=== PATIENT | female | born 1970 | race Caucasian/White ===

== ENCOUNTER 2024-01-28 03:52 | Inpatient (IN) | payer MEDICAID ==
[~2024-01-28] VITALS: Ht 162.6 cm; Wt 57.7 kg
[2024-01-28 04:14] LABS: BILIRUBIN,URINE NEGATIVE (Neg); CLARITY,URINE CLEAR (Clear); COLOR,URINE YELLOW (Yellow); GLUCOSE, URINE NEGATIVE (Neg); KETONES,URINE NEGATIVE (Neg); LEUKOCYTE ESTERASE ,URINE NEGATIVE (Neg); NITRITES, URINE NEGATIVE (Neg); OCCULT BLOOD,URINE NEGATIVE (Neg); PH,URINE 6.5 (4.8-8.0); PROTEIN,URINE NEGATIVE (Neg); URINE HCG NEGATIVE (NEG); UROBILINOGEN,URINE 0.2 E.U/dL (0.2-1.0)
[2024-01-28 04:16] LABS: UA COLLECTION TYPE CLN CATCH MIDSTREAM
[2024-01-28] MEDS: ondansetron/PF 4mg/2ml inj IV ONE ×2 (04:39→04:46)
[2024-01-28] MEDS: normal saline 1000ml 1,000 ML IV ONE (04:39)
[2024-01-28] MEDS: proCHLORperazine 10 MG/2 ml inj IV ONE (04:46)
[2024-01-28 04:54] LABS: BASOPHILS # (AUTO) 0.1 X10'3 (0-0.2); BASOPHILS % (AUTO) 0.5 % (0-1); EOSINOPHILS # (AUTO) 0.1 X10'3 (0-0.9); EOSINOPHILS % (AUTO) 0.6 % (0-6); HEMATOCRIT 38.1 % (35.0-45.0); HEMOGLOBIN 12.3 g/dl (12.0-16.0); LYMPHOCYTES # (AUTO) 0.8 X10'3 (1.1-4.8); LYMPHOCYTES % (AUTO) 7.3 % (21-51); MEAN CORPUSCULAR HEMOGLOBIN 27.2 PG (27.0-31.0); MEAN CORPUSCULAR HGB CONC 32.3 g/dL (33.0-36.5); MEAN CORPUSCULAR VOLUME 84.3 FL (78-98); MEAN PLATELET VOLUME 8.2 FL (7.4-10.4); MONOCYTES # (AUTO) 0.5 X10'3 (0-0.9); MONOCYTES % (AUTO) 4.1 % (2-12); NEUTROPHILS # (AUTO) 9.7 X10'3 (1.8-7.7); NEUTROPHILS % (AUTO) 87.5 % (42-75); PLATELET COUNT 341 X10'3 (140-440); RED BLOOD COUNT 4.52 X10'6 (4.20-5.60)
[2024-01-28 05:10] LABS: ALANINE AMINOTRANSFERASE 57 U/L (12-78); ALBUMIN 3.6 G/DL (3.4-5.0); ALBUMIN/GLOBULIN RATIO 1.3 (1.1-1.5); ALKALINE PHOSPHATASE 32 IU/L (46-116); ANION GAP 8 (8-16); ASPARTATE AMINO TRANSFERASE 42 U/L (10-37); BILIRUBIN,TOTAL 0.2 MG/DL (0.1-1.0); BLOOD UREA NITROGEN 23 MG/DL (7-18); BUN/CREATININE RATIO 37.7 (10.0-20.0); CHLORIDE 107 MMOL/L (99-107); CREATININE 0.61 MG/DL (0.40-0.90); GLUCOSE 121 MG/DL (70-104); POTASSIUM 3.4 MMOL/L (3.5-5.1); SODIUM 141 MMOL/L (135-145); TOTAL CARBON DIOXIDE 25.8 MMOL/L (24-32); TOTAL PROTEIN 6.4 G/DL (6.4-8.2); eCRCL 94 ML/MIN; eGFR > 90 ML/MIN
[2024-01-28 05:12] LABS: LIPASE 295 U/L (16-77)
[2024-01-28] MEDS ORDERED: magnesium sulf-water 2g/50mL 50 ML IV PRN (06:00)
[2024-01-28] MEDS ORDERED: acetaminophen 325mg tablet PO PRN (06:00)
[2024-01-28] MEDS ORDERED: magnesium hydroxide 30ml (MOM) UD suspension PO PRN (06:00)
[2024-01-28] MEDS ORDERED: mag hydrox/Alum hydrox/simeth 30ml oral suspension PO PRN (06:00)
[2024-01-28] MEDS ORDERED: magnesium sulf-water 4G/100mL 100 ML IV PRN (06:00)
[2024-01-28] MEDS ORDERED: magnesium Cl slow-release 64mg tablet PO PRN (06:00)
[2024-01-28] MEDS ORDERED: potassium Cl 20 mEq SR tablet PO PRN ×2 (06:00)
[2024-01-28] MEDS: normal saline 1000ml 1,000 ML IV SCH (07:28)
[2024-01-28] MEDS: ringers solution, lacted 1,000 ML IV ONE (07:28)
[2024-01-28] MEDS: K and/or MAG REPLACEMENT MC SCH (08:00)
[2024-01-28] MEDS: docusate sod 100mg capsule PO SCH (08:00)
[2024-01-28 08:05] VITALS: BP 115/70; PULSE 72; RESP 14; TEMP 97.9; O2SAT 99
[2024-01-28 08:45] LABS: C-REACTIVE PROTEIN < 0.05 MG/DL (0.0-0.5)
[2024-01-28] MEDS: heparin, porcine 5000 units/ml vial SQ SCH (09:13)
[2024-01-28] MEDS ORDERED: GABA600T13 PO (12:24)
[2024-01-28] MEDS ORDERED: LANS15CA18 PO (12:24)
[2024-01-28] MEDS ORDERED: ZOLP10TA (12:24)
[2024-01-28] MEDS ORDERED: ALPR-624 PO (12:24)
[2024-01-28] MEDS ORDERED: BACL10TA2 PO (12:24)
[2024-01-28] MEDS ORDERED: BUSP30TA3 (12:24)
[2024-01-28] MEDS ORDERED: LEVO50TA8 PO (12:24)
[2024-01-28] MEDS ORDERED: FAMO20TA8 PO (12:31)
[2024-01-28] MEDS ORDERED: PROP10TA10 PO (12:36)
[2024-01-28] MEDS ORDERED: PALI3TAB PO (13:35)
[2024-01-28] MEDS: pantoprazole 40 MG vial IV STA (13:51)
[2024-01-28] MEDS: potassium Cl 40MEQ/1/2NS 520ml 520 ML IV PRN (13:53)
[2024-01-28] MEDS ORDERED: DULO60CA65 PO (14:02)
[2024-01-28] MEDS ORDERED: SUCR1TAB (14:02)
[2024-01-28 16:04] VITALS: RESP 16
[2024-01-28 20:00] VITALS: BP 114/69; PULSE 71; RESP 14; TEMP 98; O2SAT 100
[2024-01-28] MEDS: morphine 2 MG/ML inj. syringe IV PRN (20:58)
[2024-01-29] MEDS: ondansetron/PF 4mg/2ml inj IV PRN (01:20)
[2024-01-29 06:00] VITALS: BP 97/64; PULSE 69; RESP 16; TEMP 97.5; O2SAT 100
[2024-01-29 06:08] LABS: BASOPHILS # (AUTO) 0.1 X10'3 (0-0.2); BASOPHILS % (AUTO) 1.5 % (0-1); EOSINOPHILS # (AUTO) 0.1 X10'3 (0-0.9); EOSINOPHILS % (AUTO) 1.7 % (0-6); HEMOGLOBIN 10.7 g/dl (12.0-16.0); LYMPHOCYTES # (AUTO) 1.5 X10'3 (1.1-4.8); LYMPHOCYTES % (AUTO) 27.6 % (21-51); MEAN CORPUSCULAR HEMOGLOBIN 27.7 PG (27.0-31.0); MEAN CORPUSCULAR HGB CONC 32.4 g/dL (33.0-36.5); MEAN CORPUSCULAR VOLUME 85.7 FL (78-98); MEAN PLATELET VOLUME 8.1 FL (7.4-10.4); MONOCYTES # (AUTO) 0.5 X10'3 (0-0.9); MONOCYTES % (AUTO) 10.1 % (2-12); NEUTROPHILS # (AUTO) 3.1 X10'3 (1.8-7.7); NEUTROPHILS % (AUTO) 59.1 % (42-75); PLATELET COUNT 283 X10'3 (140-440); RED BLOOD COUNT 3.85 X10'6 (4.20-5.60); RED CELL DISTRIBUTION WIDTH 13.7 % (11.5-14.5); WHITE BLOOD COUNT 5.3 X10'3 (4.5-11.0)
[2024-01-29 06:19] LABS: ALANINE AMINOTRANSFERASE 43 U/L (12-78); ALBUMIN 2.8 G/DL (3.4-5.0); ALBUMIN/GLOBULIN RATIO 1.2 (1.1-1.5); ALKALINE PHOSPHATASE 25 IU/L (46-116); ANION GAP 4 (8-16); ASPARTATE AMINO TRANSFERASE 25 U/L (10-37); BILIRUBIN,TOTAL 0.3 MG/DL (0.1-1.0); BLOOD UREA NITROGEN 10 MG/DL (7-18); BUN/CREATININE RATIO 18.9 (10.0-20.0); CALCIUM 8.1 MG/DL (8.5-10.1); CHLORIDE 110 MMOL/L (99-107); CHOL/HDL RATIO 2.6 (0.00-4.99); CHOLESTEROL 173 MG/DL (0-200); CREATININE 0.53 MG/DL (0.40-0.90); GLUCOSE 97 MG/DL (70-104); HDL CHOLESTEROL 66 MG/DL (35-60); LDL CHOLESTEROL 84 MG/DL (50-100); MAGNESIUM 1.8 MG/DL (1.5-2.4); POTASSIUM 3.8 MMOL/L (3.5-5.1); SODIUM 141 MMOL/L (135-145); TOTAL CARBON DIOXIDE 27.1 MMOL/L (24-32); TOTAL PROTEIN 5.1 G/DL (6.4-8.2); TRIGLYCERIDES 110 MG/DL (20-135); eCRCL 108 ML/MIN; eGFR > 90 ML/MIN
[2024-01-29 06:31] LABS: C-REACTIVE PROTEIN < 0.05 MG/DL (0.0-0.5)
[2024-01-29] MEDS: levoTHYROXINE 25mcg tablet PO SCH (06:58)
[2024-01-29] MEDS: famotidine 20mg tablet PO SCH (07:07)
[2024-01-29] MEDS: ALPRAZolam 0.5mg tablet PO SCH (07:07)
[2024-01-29] MEDS: duloxetine 30mg CAPSULE.DR PO SCH (07:08)
[2024-01-29] MEDS: baclofen 10mg tablet PO PRN (07:08)
[2024-01-29] MEDS: propranolol 10mg tablet PO SCH (07:09)
[2024-01-29] MEDS: gabapentin 300mg capsule PO SCH (07:09)
[2024-01-29] MEDS: pantoprazole 40 MG vial IV SCH (07:10)
[2024-01-29] MEDS: metoclopramide 5 mg/ml inj IV PRN (07:14)
[2024-01-29 08:00] VITALS: RESP 16; O2SAT 100
[2024-01-29] MEDS ORDERED: pantoprazole 40 MG vial IV SCH (08:00)
[2024-01-29] MEDS: metroNIDAZOLE-Flagyl 500mg/NS 100 ML IV SCH (09:22)
[2024-01-29 10:00] VITALS: BP 96/51; PULSE 66; RESP 16; TEMP 98.5; O2SAT 97
[2024-01-29] MEDS: CefTRIAXone 2gm/D5W 50ml BAG 50 ML IV SCH (10:15)
[2024-01-29] MEDS: paliperidone 1.5mg ER tablet PO SCH (10:15)
[2024-01-29 18:00] VITALS: BP 103/61; PULSE 60; RESP 16; TEMP 97.7; O2SAT 94
[2024-01-29 20:00] VITALS: RESP 16; O2SAT 94
[2024-01-29] MEDS: acetaminophen 325mg tablet PO PRN (20:26)
[2024-01-29 22:00] VITALS: BP 100/64; PULSE 80; RESP 16; TEMP 97.9; O2SAT 95
[2024-01-30 06:00] VITALS: BP 102/58; PULSE 70; RESP 16; TEMP 97.8; O2SAT 97
[2024-01-30 06:52] LABS: BASOPHILS % (AUTO) 1.1 % (0-1); EOSINOPHILS # (AUTO) 0.1 X10'3 (0-0.9); EOSINOPHILS % (AUTO) 2.1 % (0-6); HEMATOCRIT 30.2 % (35.0-45.0); HEMOGLOBIN 9.6 g/dl (12.0-16.0); LYMPHOCYTES % (AUTO) 24.8 % (21-51); MEAN CORPUSCULAR HEMOGLOBIN 27.5 PG (27.0-31.0); MEAN CORPUSCULAR HGB CONC 31.9 g/dL (33.0-36.5); MEAN CORPUSCULAR VOLUME 86.2 FL (78-98); MEAN PLATELET VOLUME 7.9 FL (7.4-10.4); MONOCYTES # (AUTO) 0.5 X10'3 (0-0.9); MONOCYTES % (AUTO) 11.3 % (2-12); NEUTROPHILS # (AUTO) 2.5 X10'3 (1.8-7.7); NEUTROPHILS % (AUTO) 60.7 % (42-75); PLATELET COUNT 248 X10'3 (140-440); RED BLOOD COUNT 3.51 X10'6 (4.20-5.60); WHITE BLOOD COUNT 4.1 X10'3 (4.5-11.0)
[2024-01-30 07:07] LABS: ALANINE AMINOTRANSFERASE 43 U/L (12-78); ALBUMIN 2.5 G/DL (3.4-5.0); ALBUMIN/GLOBULIN RATIO 1.1 (1.1-1.5); ALKALINE PHOSPHATASE 23 IU/L (46-116); ANION GAP 4 (8-16); ASPARTATE AMINO TRANSFERASE 25 U/L (10-37); BILIRUBIN,TOTAL 0.1 MG/DL (0.1-1.0); BLOOD UREA NITROGEN 7 MG/DL (7-18); BUN/CREATININE RATIO 12.7 (10.0-20.0); CALCIUM 7.8 MG/DL (8.5-10.1); CHLORIDE 112 MMOL/L (99-107); CREATININE 0.55 MG/DL (0.40-0.90); GLUCOSE 89 MG/DL (70-104); MAGNESIUM 1.9 MG/DL (1.5-2.4); POTASSIUM 3.7 MMOL/L (3.5-5.1); SODIUM 144 MMOL/L (135-145); TOTAL CARBON DIOXIDE 28.2 MMOL/L (24-32); TOTAL PROTEIN 4.7 G/DL (6.4-8.2); eCRCL 105 ML/MIN; eGFR > 90 ML/MIN
[2024-01-30] MEDS: morphine 2 MG/ML inj. syringe IV PRN (07:47)
[2024-01-30 08:00] VITALS: RESP 18; O2SAT 98
[2024-01-30 10:00] VITALS: BP 102/61; PULSE 81; RESP 16; TEMP 98.6; O2SAT 100
[2024-01-30] MEDS ORDERED: CEFD300C3 PO (10:09)
[2024-01-30] MEDS ORDERED: METR-159 PO (10:09)
== END 2024-01-30 12:35 | disposition home or self-care (01) | DRG 249 ==
LOC: ER 03:53 → ED HOLD 06:01 → EDBEDREQ 07:01 → EDBEDREQSVC 07:01 → ORTHO 4S 07:55
PROVIDERS: ADMIT Internal Medicine Critical Care Medicine; ATTEND Nurse Practitioner Family
DX: K52.9 Noninfective gastroenteritis and colitis, unspecified (principal); K85.90 Acute pancreatitis without necrosis or infection, unspecified; E87.6 Hypokalemia; I10 Essential (primary) hypertension; F41.0 Panic disorder [episodic paroxysmal anxiety]; R73.9 Hyperglycemia, unspecified; E03.9 Hypothyroidism, unspecified; Z87.11 Personal history of peptic ulcer disease
CPT/HCPCS: 36415; 74176; 74181; 76700; 80053; 80061; 81003; 81025; 83690; 83735; 84484; 85025; 86140; 87081; 99285; A6258; G0378; J0696; J0780; J1644; J2270; J2405; J2470; J2765; J3480; J3490; J7030; J7120